=== PATIENT | female | born 1940 | race Caucasian/White ===

== ENCOUNTER 2021-06-08 13:51 | Inpatient (IN) | payer MEDICARE, BC ==
[~2021-06-08] VITALS: Ht 161.3 cm; Wt 51.8 kg
[2021-06-08 14:58] LABS: BASOPHILS % (AUTO) 0.4 % (0-1); EOSINOPHILS % (AUTO) 0.3 % (0-6); HEMATOCRIT 31.1 % (35.0-45.0); HEMOGLOBIN 10.5 g/dl (12.0-16.0); LYMPHOCYTES # (AUTO) 4.8 X10'3 (1.1-4.8); LYMPHOCYTES % (AUTO) 46.6 % (21-51); MEAN CORPUSCULAR HEMOGLOBIN 25.6 PG (27.0-31.0); MEAN CORPUSCULAR HGB CONC 33.8 g/dL (33.0-36.5); MEAN CORPUSCULAR VOLUME 75.7 FL (78-98); MEAN PLATELET VOLUME 6.9 FL (7.4-10.4); MONOCYTES # (AUTO) 1.1 X10'3 (0-0.9); MONOCYTES % (AUTO) 10.8 % (2-12); NEUTROPHILS # (AUTO) 4.3 X10'3 (1.8-7.7); NEUTROPHILS % (AUTO) 41.9 % (42-75); PLATELET COUNT 392 X10'3 (140-440); RED BLOOD COUNT 4.12 X10'6 (4.20-5.60); RED CELL DISTRIBUTION WIDTH 15.9 % (11.5-14.5); WHITE BLOOD COUNT 10.3 X10'3 (4.5-11.0)
[2021-06-08 15:15] LABS: ALANINE AMINOTRANSFERASE 21 U/L (12-78); ALBUMIN 3.3 G/DL (3.4-5.0); ALKALINE PHOSPHATASE 81 IU/L (46-116); ANION GAP 9 (8-16); ASPARTATE AMINO TRANSFERASE 21 U/L (10-37); BILIRUBIN,TOTAL 1.6 MG/DL (0.1-1.0); BLOOD UREA NITROGEN 19 MG/DL (7-18); BUN/CREATININE RATIO 18.4 (6.6-38.0); CHLORIDE 84 MMOL/L (99-107); CREATININE 1.03 MG/DL (0.40-0.90); GLUCOSE 88 MG/DL (70-104); TOTAL CARBON DIOXIDE 26.5 MMOL/L (24-32); TOTAL PROTEIN 6.7 G/DL (6.4-8.2); eGFR 51 ML/MIN
[2021-06-08 15:18] LABS: SODIUM 119 MMOL/L (135-145)
[2021-06-08 17:44] LABS: CLARITY,URINE CLOUDY (Clear); COLOR,URINE YELLOW (Yellow); GLUCOSE, URINE NEGATIVE (Neg); KETONES,URINE NEGATIVE (Neg); LEUKOCYTE ESTERASE ,URINE LARGE (Neg); NITRITES, URINE NEGATIVE (Neg); OCCULT BLOOD,URINE LARGE (Neg); PROTEIN,URINE TRACE mg/dl (Neg); UROBILINOGEN,URINE 0.2 E.U/dL (0.2-1.0)
[2021-06-08] MEDS ORDERED: normal saline 1000ML IV soln IVB ONE (17:50)
[2021-06-08] MEDS ORDERED: normal saline 1000ml 1,000 ML IV ONE (17:50)
[2021-06-08 17:51] LABS: UA COLLECTION TYPE CLN CATCH MIDSTREAM
[2021-06-08 17:52] LABS: WBC,URINE TNTC /HPF (0-4)
[2021-06-08 17:53] LABS: BACTERIA,URINE 2+ /HPF (Neg); SQUAMOUS EPITHELIAL CELL,UR MODERATE /LPF (FEW); WBC CLUMPS,URINE MODERATE /HPF (NEGATIVE)
[2021-06-08] MEDS ORDERED: HYDR12.55 PO (18:34)
[2021-06-08] MEDS ORDERED: LEVO500T90 PO (18:34)
[2021-06-08] MEDS ORDERED: ONDA4TAB12 PO (18:34)
[2021-06-08] MEDS ORDERED: ATEN-55 PO (18:34)
[2021-06-08] MEDS ORDERED: IBRU420T PO (18:34)
[2021-06-08] MEDS ORDERED: SULF1TAB45 PO (18:34)
[2021-06-08] MEDS ORDERED: CefTRIAXone 2gm/D5W 50ml BAG 50 ML IV ONE (19:20)
[2021-06-08] MEDS ORDERED: potassium CL 10mEq/100ml bag 100 ML IV PRN (19:35)
[2021-06-08] MEDS ORDERED: acetaminophen 325mg tablet PO PRN (19:35)
[2021-06-08] MEDS ORDERED: magnesium hydroxide 30ml (MOM) UD suspension PO PRN (19:35)
[2021-06-08] MEDS ORDERED: mag hydrox/Alum hydrox/simeth 30ml oral suspension PO PRN (19:35)
[2021-06-08] MEDS ORDERED: potassium Cl 20 mEq SR tablet PO PRN ×2 (19:35)
[2021-06-08] MEDS ORDERED: ondansetron/PF 4mg/2ml inj IV PRN (19:35)
[2021-06-08] MEDS: K and/or MAG REPLACEMENT MC SCH (20:00)
[2021-06-08] MEDS: docusate sod 100mg capsule PO SCH (20:00)
[2021-06-08] MEDS: normal saline 1000ml 1,000 ML IV SCH (20:20)
[2021-06-08] MEDS: CefTRIAXone/D5W-Rocephin 1gm 50 ML IV SCH (20:32)
--- NOTE | 2021-06-08 22:12 | NUR ---
I have received report from STEPHY Sen in ED and had the opportunity to ask questions and assume patient care. VSRosa
[2021-06-08 22:20] VITALS: BP 146/68
[2021-06-08] MEDS: heparin, porcine 5000 units/ml vial SQ SCH (23:15)
[2021-06-09] VITALS: BP 146/68
[2021-06-09] MEDS: normal saline 1000ml 1,000 ML IV SCH ×2 (04:08→19:14)
[2021-06-09 06:12] LABS: BASOPHILS % (AUTO) 0.4 % (0-1); EOSINOPHILS % (AUTO) 0.4 % (0-6); HEMATOCRIT 30.4 % (35.0-45.0); HEMOGLOBIN 10.2 g/dl (12.0-16.0); LYMPHOCYTES # (AUTO) 3.4 X10'3 (1.1-4.8); LYMPHOCYTES % (AUTO) 39.6 % (21-51); MEAN CORPUSCULAR HEMOGLOBIN 25.9 PG (27.0-31.0); MEAN CORPUSCULAR HGB CONC 33.5 g/dL (33.0-36.5); MEAN CORPUSCULAR VOLUME 77.3 FL (78-98); MEAN PLATELET VOLUME 6.9 FL (7.4-10.4); MONOCYTES # (AUTO) 1.1 X10'3 (0-0.9); MONOCYTES % (AUTO) 12.5 % (2-12); NEUTROPHILS % (AUTO) 47.1 % (42-75); PLATELET COUNT 318 X10'3 (140-440); RED BLOOD COUNT 3.94 X10'6 (4.20-5.60); RED CELL DISTRIBUTION WIDTH 16.6 % (11.5-14.5); WHITE BLOOD COUNT 8.6 X10'3 (4.5-11.0)
[2021-06-09 06:30] VITALS: BP 147/56
--- NOTE | 2021-06-09 06:40 | NUR ---
Patient in room [facility]. I have received report from STEPHY Rodrigues and had the opportunity to ask questions and assume patient care.
[2021-06-09 06:50] LABS: ALANINE AMINOTRANSFERASE 16 U/L (12-78); ALBUMIN 2.4 G/DL (3.4-5.0); ALBUMIN/GLOBULIN RATIO 0.8 (1.1-1.5); ALKALINE PHOSPHATASE 63 IU/L (46-116); ANION GAP 7 (8-16); ASPARTATE AMINO TRANSFERASE 22 U/L (10-37); BILIRUBIN,TOTAL 0.9 MG/DL (0.1-1.0); BLOOD UREA NITROGEN 13 MG/DL (7-18); BUN/CREATININE RATIO 17.8 (6.6-38.0); CALCIUM 7.8 MG/DL (8.5-10.1); CHLORIDE 96 MMOL/L (99-107); CREATININE 0.73 MG/DL (0.40-0.90); GLUCOSE 78 MG/DL (70-104); POTASSIUM 3.6 MMOL/L (3.5-5.1); SODIUM 128 MMOL/L (135-145); TOTAL PROTEIN 5.3 G/DL (6.4-8.2); eGFR 76 ML/MIN
[2021-06-09] MEDS: K and/or MAG REPLACEMENT MC SCH ×2 (07:39→20:00)
[2021-06-09] MEDS: docusate sod 100mg capsule PO SCH ×2 (10:33→19:09)
[2021-06-09] MEDS: atenolol 25mg tablet PO SCH (10:34)
[2021-06-09] MEDS: heparin, porcine 5000 units/ml vial SQ SCH ×3 (10:35→23:56)
[2021-06-09] MEDS: IBRUTINIB 420 MG PO SCH (10:39)
[2021-06-09 11:00] VITALS: BP 136/61
[2021-06-09] MEDS ORDERED: bisacodyl 10mg suppository rectal RC PRN (16:50)
--- NOTE | 2021-06-09 16:54 | NUR ---
Malnutrition Consult: Pt admit DX hyponatremia serum Na 119 mmol/L up to 128 mmol/L this AM, UTI, and on HCTZ at home now held per EMR. 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 Per RN Malnutrition Screen; pt reports 34 or more pounds lost past 3 months and lacks desire for food. Pt seen by RD and reports wt loss over one month period from 125 pounds to 114 pounds though unsure of exact timeframe and has been working on gaining wt back. Pt reports no trouble chewing/swallowing, no food allergies/preferences, and no GI symptoms at this time. Pt reports advocated for regular diet starting at lunch today since wanted solid foods and enjoyed first solid meal looking forward to lunch today. Pt PO 100% first clear liquids diet and 75% first regular diet WL. Pt has visible mild temporal wasting though otherwise appears appropriate given age, has normal strength per EMR, and no scaled wt this admit or prior scaled wt hx in EMR. Pt lacks minimum malnutrition criteria at this time. Will monitor for nutrition intervention needs this admit. Addendum: 06/09/21 at [address] Amended: Links added.
[2021-06-09 18:00] VITALS: BP 100/48
--- NOTE | 2021-06-09 18:05 | NUR ---
Patient in room [facility]. I have received report from STEPHY Javier and had the opportunity to ask questions and assume patient care.
--- NOTE | 2021-06-09 18:45 | NUR ---
Problems reprioritized. Patient report given, questions answered & plan of care reviewed with STEPHY Reyes.
[2021-06-09] MEDS: CefTRIAXone/D5W-Rocephin 1gm 50 ML IV SCH (19:09)
[2021-06-10] VITALS: BP 118/51
[2021-06-10 06:30] VITALS: BP 108/54
--- NOTE | 2021-06-10 06:40 | NUR ---
Patient in room [facility]. I have received report from STEPHY Reyes and had the opportunity to ask questions and assume patient care.
[2021-06-10 06:57] LABS: BASOPHILS # (AUTO) 0.1 X10'3 (0-0.2); BASOPHILS % (AUTO) 0.6 % (0-1); EOSINOPHILS # (AUTO) 0.1 X10'3 (0-0.9); EOSINOPHILS % (AUTO) 0.5 % (0-6); HEMATOCRIT 30.3 % (35.0-45.0); HEMOGLOBIN 10.2 g/dl (12.0-16.0); LYMPHOCYTES # (AUTO) 5.2 X10'3 (1.1-4.8); LYMPHOCYTES % (AUTO) 47.7 % (21-51); MEAN CORPUSCULAR HGB CONC 33.5 g/dL (33.0-36.5); MEAN CORPUSCULAR VOLUME 77.5 FL (78-98); MEAN PLATELET VOLUME 7.4 FL (7.4-10.4); MONOCYTES # (AUTO) 1.2 X10'3 (0-0.9); MONOCYTES % (AUTO) 10.9 % (2-12); NEUTROPHILS # (AUTO) 4.3 X10'3 (1.8-7.7); NEUTROPHILS % (AUTO) 40.3 % (42-75); PLATELET COUNT 336 X10'3 (140-440); RED BLOOD COUNT 3.91 X10'6 (4.20-5.60); RED CELL DISTRIBUTION WIDTH 16.7 % (11.5-14.5); WHITE BLOOD COUNT 10.8 X10'3 (4.5-11.0)
[2021-06-10 07:09] LABS: ALANINE AMINOTRANSFERASE 17 U/L (12-78); ALBUMIN 2.6 G/DL (3.4-5.0); ALBUMIN/GLOBULIN RATIO 0.9 (1.1-1.5); ALKALINE PHOSPHATASE 67 IU/L (46-116); ANION GAP 6 (8-16); ASPARTATE AMINO TRANSFERASE 19 U/L (10-37); BILIRUBIN,TOTAL 0.9 MG/DL (0.1-1.0); BLOOD UREA NITROGEN 19 MG/DL (7-18); BUN/CREATININE RATIO 21.8 (6.6-38.0); CALCIUM 8.3 MG/DL (8.5-10.1); CHLORIDE 98 MMOL/L (99-107); CREATININE 0.87 MG/DL (0.40-0.90); GLUCOSE 83 MG/DL (70-104); POTASSIUM 3.7 MMOL/L (3.5-5.1); SODIUM 129 MMOL/L (135-145); TOTAL CARBON DIOXIDE 24.8 MMOL/L (24-32); TOTAL PROTEIN 5.4 G/DL (6.4-8.2); eGFR 62 ML/MIN
[2021-06-10] MEDS: K and/or MAG REPLACEMENT MC SCH (07:57)
[2021-06-10] MEDS: heparin, porcine 5000 units/ml vial SQ SCH (07:58)
[2021-06-10] MEDS: atenolol 25mg tablet PO SCH (09:19)
[2021-06-10] MEDS: docusate sod 100mg capsule PO SCH (09:31)
[2021-06-10] MEDS: IBRUTINIB 420 MG PO SCH (09:31)
[2021-06-10 11:00] VITALS: BP 130/60
--- NOTE | 2021-06-10 13:25 | NUR ---
DC inst provided to pt. IV DC'd, tip intact. All belongings sent w/pt. WC to vehicle.
== END 2021-06-10 13:25 | disposition home or self-care (01) | DRG 641 ==
LOC: ER 13:53 → ED HOLD 19:36 → EDBEDREQTM 20:01 → EDBEDREQ 21:52 → SUR 3N 22:20
PROVIDERS: ADMIT Internal Medicine; ATTEND Family Medicine
DX: E87.1 Hypo-osmolality and hyponatremia (principal); N39.0 Urinary tract infection, site not specified; I10 Essential (primary) hypertension; Z85.6 Personal history of leukemia; Z85.72 Personal history of non-Hodgkin lymphomas; Z86.16 Personal history of COVID-19; Z79.899 Other long term (current) drug therapy; Z88.8 Allergy status to other drugs, medicaments and biological substances; Z88.2 Allergy status to sulfonamides
CPT/HCPCS: 36415; 71045; 80053; 81001; 83605; 84132; 84145; 85025; 87040; 87081; 87088; 93005; 99285; G0378; J0696; J7030

== ENCOUNTER 2022-11-28 23:43 | Emergency (ER) | payer MEDICARE, BC ==
[~2022-11-28] VITALS: Ht 152.4 cm; Wt 52.3 kg
[~2022-11-28 23:43] MED LIST: ATEN-55 PO; IBRU420T PO; LEVO-65 PO; ONDA4TAB12 PO
[2022-11-28 23:45] VITALS: BP 170/70
[2022-11-29] MEDS ORDERED: normal saline 1000ML IV soln IVB ONE (00:35)
[2022-11-29] MEDS ORDERED: CefTRIAXone 2gm/D5W 50ml BAG 50 ML IV ONE (00:35)
[2022-11-29 01:05] LABS: BASOPHILS # (AUTO) 0.1 X10'3 (0-0.2); BASOPHILS % (AUTO) 0.7 % (0-1); EOSINOPHILS # (AUTO) 0.1 X10'3 (0-0.9); EOSINOPHILS % (AUTO) 0.6 % (0-6); HEMATOCRIT 38.7 % (35.0-45.0); HEMOGLOBIN 12.9 g/dl (12.0-16.0); LYMPHOCYTES # (AUTO) 2.8 X10'3 (1.1-4.8); LYMPHOCYTES % (AUTO) 25.5 % (21-51); MEAN CORPUSCULAR HEMOGLOBIN 27.9 PG (27.0-31.0); MEAN CORPUSCULAR HGB CONC 33.3 g/dL (33.0-36.5); MEAN CORPUSCULAR VOLUME 83.9 FL (78-98); MEAN PLATELET VOLUME 8.9 FL (7.4-10.4); MONOCYTES # (AUTO) 1.1 X10'3 (0-0.9); MONOCYTES % (AUTO) 10.1 % (2-12); NEUTROPHILS # (AUTO) 6.9 X10'3 (1.8-7.7); NEUTROPHILS % (AUTO) 63.1 % (42-75); PLATELET COUNT 153 X10'3 (140-440); RED BLOOD COUNT 4.61 X10'6 (4.20-5.60); RED CELL DISTRIBUTION WIDTH 14.3 % (11.5-14.5)
[2022-11-29 01:18] LABS: ALANINE AMINOTRANSFERASE 18 U/L (12-78); ALBUMIN/GLOBULIN RATIO 1.6 (1.1-1.5); ALKALINE PHOSPHATASE 67 IU/L (46-116); ANION GAP 7 (8-16); ASPARTATE AMINO TRANSFERASE 21 U/L (10-37); BILIRUBIN,TOTAL 2.2 MG/DL (0.1-1.0); BLOOD UREA NITROGEN 20 MG/DL (7-18); BUN/CREATININE RATIO 21.1 (10.0-20.0); CALCIUM 9.5 MG/DL (8.5-10.1); CHLORIDE 99 MMOL/L (99-107); CREATININE 0.95 MG/DL (0.40-0.90); GLUCOSE 108 MG/DL (70-104); LIPASE 68 U/L (73-393); MAGNESIUM 1.9 MG/DL (1.5-2.4); POTASSIUM 4.1 MMOL/L (3.5-5.1); SODIUM 134 MMOL/L (135-145); TOTAL CARBON DIOXIDE 28.4 MMOL/L (24-32); TOTAL PROTEIN 6.5 G/DL (6.4-8.2); eGFR 56 ML/MIN
[2022-11-29 01:35] LABS: CLARITY,URINE CLOUDY (Clear); COLOR,URINE YELLOW (Yellow); GLUCOSE, URINE NEGATIVE (Neg); KETONES,URINE NEGATIVE (Neg); LEUKOCYTE ESTERASE ,URINE LARGE (Neg); NITRITES, URINE NEGATIVE (Neg); OCCULT BLOOD,URINE MODERATE (Neg); PH,URINE 7.5 (4.8-8.0); PROTEIN,URINE 100 mg/dl (Neg); UROBILINOGEN,URINE 0.2 E.U/dL (0.2-1.0)
[2022-11-29 01:42] LABS: UA COLLECTION TYPE CLN CATCH MIDSTREAM
[2022-11-29 01:45] LABS: BACTERIA,URINE FEW /HPF (Neg); RBC,URINE TNTC /HPF (0-2); WBC,URINE TNTC /HPF (0-4)
[2022-11-29 01:46] LABS: CELLULAR CAST >30 /LPF (NEGATIVE); SQUAMOUS EPITHELIAL CELL,UR MODERATE /LPF (FEW); WBC CLUMPS,URINE MANY /HPF (NEGATIVE)
== END 2022-11-29 02:05 | disposition home or self-care (01) ==
LOC: ER 23:44
DX: N39.0 Urinary tract infection, site not specified (principal); Z88.2 Allergy status to sulfonamides; Z79.899 Other long term (current) drug therapy
CPT/HCPCS: 36415; 80053; 81001; 83605; 83690; 83735; 84145; 85025; 87040; 87088; 96365; 96366; 99284; J0696; J7030; 87077; 87186